=== PATIENT | female | born 1990 | race Caucasian/White ===

== ENCOUNTER 2016-06-28 19:33 | Emergency (ER) | payer SELFPAY ==
[2016-06-28 20:56] VITALS: BP 139/96
--- NOTE | 2016-06-28 21:35 | ER Document Report ---
ED Medical Screen (RME) - General Stated Complaint: SORE THROAT Notes: Patient complains of sore throat 2 days, congestion and cough for 2 weeks. Does have swollen glands in neck. Fever unknown. I have greeted and performed a rapid initial assessment of this patient. A comprehensive ED assessment and evaluation of the patient, analysis of test results and completion of the medical decision making process will be conducted by additional ED providers. TRAVEL OUTSIDE OF THE [place] IN LAST 30 DAYS: No - Related Data Allergies/Adverse Reactions: shellfish derived Allergy (Verified 06/28/16 21:32) Past Medical History Pulmonary Medical History: Reports: Hx Asthma Neurological Medical History: Reports: Hx Migraine GI Medical History: Reports: Hx Gastroesophageal Reflux Disease, Hx Irritable Bowel Musculoskeltal Medical History: Reports Hx Musculoskeletal Deformity, Reports Hx Musculoskeletal Trauma Psychiatric Medical History: Reports: Hx Anxiety Past Surgical History: Reports: Hx Myringotomy - Immunizations Hx Diphtheria, Pertussis, Tetanus Vaccination: No Physical Exam - Vital signs Vitals: Temp Pulse Resp BP Pulse Ox 98.2 F 77 18 139/96 H 99 06/28/16 20:55 06/28/16 20:55 06/28/16 20:55 06/28/16 20:55 06/28/16 20:55 - HEENT Notes: Throat with mild erythema, no exudates noted. Course - Vital Signs Vital signs: Temp Pulse Resp BP Pulse Ox 98.2 F 77 18 139/96 H 99 06/28/16 20:55 06/28/16 20:55 06/28/16 20:55 06/28/16 20:55 06/28/16 20:55
== END 2016-06-29 01:00 | disposition left against medical advice (07) ==
LOC: ER 19:33
DX: J02.9 Acute pharyngitis, unspecified (principal); R05 Cough; R59.0 Localized enlarged lymph nodes; J45.909 Unspecified asthma, uncomplicated; Z53.20 Procedure and treatment not carried out because of patient's decision for unspecified reasons
CPT/HCPCS: 87070; 87077; 87880; 99281